=== PATIENT | female | born 1985 | race Caucasian/White ===

== ENCOUNTER 2021-11-16 19:22 | Emergency (ER) | payer MEDICAID ==
[~2021-11-16] VITALS: Ht 154.9 cm; Wt 106.8 kg
[~2021-11-16 19:22] MED LIST: TRIA15CR61 TP
[2021-11-16 19:32] VITALS: BP 145/86
[2021-11-16] MEDS ORDERED: dexamethasone sod phosphate 10mg/ml inj PO STA (20:34)
== END 2021-11-16 20:49 | disposition home or self-care (01) ==
LOC: ER 19:23
DX: L50.9 Urticaria, unspecified (principal); Z79.899 Other long term (current) drug therapy
CPT/HCPCS: 99283; J1100

== ENCOUNTER 2023-03-05 10:20 | Emergency (ER) | payer MEDICAID ==
[~2023-03-05] VITALS: Ht 152.4 cm; Wt 124.6 kg
[~2023-03-05 10:20] MED LIST changes: +PANT-47 PO
[2023-03-05 10:21] VITALS: TEMP 98.7
[2023-03-05 11:07] LABS: STREP A SCREEN POSITIVE (Neg)
[2023-03-05] MEDS ORDERED: AMOX-117 PO (11:59)
[2023-03-05] MEDS ORDERED: dexamethasone sod phosphate 10mg/ml inj IM STA (12:01)
[2023-03-05 12:27] VITALS: BP 126/67; PULSE 72; RESP 16; O2SAT 97
--- NOTE | 2023-03-05 13:54 | NUR ---
TAG WRITER ASSESSMENT REVIEWED BY JACQUIE RN; APPROVED
== END 2023-03-05 12:27 | disposition home or self-care (01) ==
LOC: ER 10:20
DX: J02.0 Streptococcal pharyngitis (principal); Z79.899 Other long term (current) drug therapy
CPT/HCPCS: 87880; 96372; 99283; J1100